=== PATIENT | female | born 1985 | race Caucasian/White ===

== ENCOUNTER 2016-08-12 20:14 | Emergency (ER) | payer MEDICAID ==
[~2016-08-12] VITALS: Ht 162.6 cm; Wt 59.1 kg
[~2016-08-12 20:14] MED LIST: CLARITIN 1010 MG/TAB PO; MOTRIN 600600 MG/TAB PO; PRENATAL; PROVENTIL0.09 MG/A1 IH; TYLENOL SINUS1 EACH PO
[2016-08-12 20:22] VITALS: TEMP 97.9
[2016-08-12] MEDS ORDERED: LEXAPRO 5MG5 MG (20:29)
[2016-08-12 22:38] LABS: BASO % 0.2 % (0.0-2.0); EOS # 0.1 (0.0-0.7); EOS % 1.3 % (0-4.0); GRAN # 3.3 (1.4-6.5); GRAN % 54.3 % (42.2-75.2); HEMATOCRIT 42.6 % (37.0-47.0); HEMOGLOBIN 14.3 g/dl (12.5-16.0); LYMPH # 1.9 (1.2-3.4); LYMPH % 31.2 % (20.0-51.0); MEAN CELL VOLUME 88 fl (80.0-100.0); MEAN CORPUSCULAR HEMOGLOBIN 30 pg (27.0-31.0); MEAN CORPUSCULAR HGB CONC 34 g/dl (33.0-37.0); MEAN PLATELET VOLUME 9.2 fl (7.4-10.4); MONO # 0.8 (0.1-0.6); MONO % 12.8 % (1.7-9.3); PLATELET COUNT 226 K/mm3 (130-400); RED BLOOD COUNT 4.82 M/mm3 (4.10-5.30); REDCELL DISTRIBUTION WIDTH-CV 13.4 % (11.5-14.5)
[2016-08-12 22:50] LABS: ADJUSTED CALCIUM 8.4 mg/dL (8.4-10.2); ALBUMIN 3.7 gm/dL (3.5-5.0); BILIRUBIN,TOTAL 0.6 mg/dL (0.0-1.0); CALCIUM 8.2 mg/dL (8.4-10.2); CREATININE, serum 0.78 mg/dL (0.52-1.25); POTASSIUM 3.6 mmol/L (3.4-5.0); TOTAL PROTEIN 6.8 gm/dL (6.4-8.2)
[2016-08-12] MEDS ORDERED: LOMOTIL 0.025 M1 TAB PO (23:21)
[2016-08-12 23:28] VITALS: BP 122/80; PULSE 76
== END 2016-08-12 23:29 | disposition home or self-care (01) ==
LOC: COL.ER 20:14
PROVIDERS: Emergency Medicine
DX: K52.9 Noninfective gastroenteritis and colitis, unspecified (principal)
CPT/HCPCS: J2765; J3010; J7030